=== PATIENT | female | born 1955 | race Caucasian/White ===

== ENCOUNTER 2017-05-16 14:42 | Inpatient (IN) | payer SELFPAY ==
[~2017-05-16] VITALS: Ht 167.6 cm; Wt 85.7 kg
--- NOTE | 2017-05-16 14:42 | NUR ---
Patient BIBA BLS accompanied by [place] [employer], transferred to bed 2. RN evaluating patient at bedside.
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
[2017-05-16 14:59] VITALS: BP 147/86
--- NOTE | 2017-05-16 15:00 | NUR ---
BL PEDAL/BL RADIAL PULSES +3, BL UPPER/LOWER EXTREMITY CAP REFILL <2 SECONDS, NO LOSS OF SENSATION TO BL UPPER/LOWER EXTREMITY AT THIS TIME; SKIN IS INTACT, NO ERYTHEMA NOTED TO BL UPPER/LOWER EXTREMITIES AT THIS TIME. WILL CONTINUE TO MONITOR.
[2017-05-16] MEDS ORDERED: diphenhydrAMINE 50 MG/ML VIAL IM ONE (15:15)
[2017-05-16] MEDS ORDERED: LORazepam 2 MG/ML VIAL IM ONE (15:15)
[2017-05-16] MEDS: NACL 0.9% 1,000 ML IV SCH (15:30)
--- NOTE | 2017-05-16 15:43 | NUR ---
Patient transferred to bed 1 for further care.
[2017-05-16] MEDS ORDERED: HALOPERIDOL IM 5 MG/ML VIAL IM ONE (16:05)
--- NOTE | 2017-05-16 16:05 | NUR ---
PT POSITIONED FOR COMFORT; PT CONTINUES TO SCREAM OUT LOUD; PT YELLING "THANK YOU MEERA MCCALL, GLORY TO GOD"; SITTER AT BEDSIDE; WILL CONTINUE TO MONITOR.
[2017-05-16] MEDS ORDERED: DOCUSATE SODIUM 100 MG GELCAP PO PRN (16:15)
[2017-05-16] MEDS ORDERED: HYDROcodone/APAP 7.5/325 MG 1 TAB PO PRN (16:15)
[2017-05-16] MEDS ORDERED: ACETAMINOPHEN 325 MG TAB PO PRN (16:15)
[2017-05-16] MEDS ORDERED: MORPHINE SULFATE 2 MG/ML SYR IVP PRN (16:15)
[2017-05-16] MEDS ORDERED: ONDANSETRON 4 MG/2 ML VIAL IM/IVP PRN (16:15)
--- NOTE | 2017-05-16 16:30 | NUR ---
RECEIVED PT REPORT FROM ER NURSE. PT IS DROWSY AT THIS TIME. PT IS AOX2 TO NAME AND PLACE. PT IS UNCOOPERATIVE. NOT ABLE TO PROVIDE MEDICAL HX DUE TO MENTAL STATUS. PT IS ON 5150 HOLD OF SI. NO S/S OF ACUTE DISTRESS ON ROOM AIR. VITALS TAKEN, WITHIN NORMAL LIMIT. MRSA SCREENING DONE. IV NOTED TO THE LEFT HAND 20G, IS PATENT AND INTACT. ABRASIONS NOTED TO THE KNEES. ABLE TO ASSESS SACRAL BECAUSE PT REFUSED TO TAKE OFF HER UNDERWEAR. DENIES ANY PAIN. ORIENTED PT TO HOSPITAL ENVIRONMENT AND CARE PLAN. PT IS ON 1;1 SITTER. BED IN LOW POSITION. RESTRAINTS ARE REMOVED. NO RESTRAINS AT THIS TIME. PT IS RESTING IN BED.
--- NOTE | 2017-05-16 16:30 | NUR ---
RECEIVED PT REPORT FROM ER NURSE. PT IS DROWSY AT THIS TIME. PT IS AOX2 TO NAME AND PLACE. PT IS UNCOOPERATIVE. NOT ABLE TO PROVIDE MEDICAL HX DUE TO MENTAL STATUS. PT IS ON 5150 HOLD OF [employer]. NO S/S OF ACUTE DISTRESS ON ROOM AIR. VITALS TAKEN, WITHIN NORMAL LIMIT. MRSA SCREENING DONE. IV NOTED TO THE LEFT HAND 20G. IS PATENT AND INTACT. SKIN INTACT. STATES TOLERABLE ABD PAIN OF 3/10 AND FEELING HOT, GAVE PATIENT ICE BAG FOR COMFORT. PATIENT WAS DISCUSSED POC FOR TODAY, HOSPITAL ENVIRONMENT, CALL LIGHT USE FOR ASSISTANCE. BED IN LOW POSITION WITH CALL LIGHT WITHIN REACH, PATIENT VERBALIZED UNDERSTANDING. Addendum: 05/16/17 at 1946 by Adam Roach RN PLEASE DISCARD, UNDER WRONG PT.
--- NOTE | 2017-05-16 16:38 | NUR ---
Patient will be admitted to care of DR. GIORDANO. Admited to MED-SURG. Will go to room 109B. Belongings list completed. Report to JOHN REAL AT BEDSIDE.
--- NOTE | 2017-05-16 16:45 | NUR ---
APPLIED FALL RISK BAND AND ALLERGY BAND TO LEFT WRIST. PT IS SLEEPING.
[2017-05-16] MEDS ORDERED: LORazepam 2 MG/ML VIAL IVP PRN (17:00)
--- NOTE | 2017-05-16 17:00 | NUR ---
PT REFUSED HEAD CT AND US CAROTID. Addendum: 05/16/17 at 1951 by Adam Roach RN PT WAS SHOUTING LOUDLY "NO, I DON'T WANT IT. I KNOW MY RIGHTS. "
[2017-05-16 17:26] VITALS: BP 130/72
--- NOTE | 2017-05-16 18:50 | NUR ---
PT REFUSED BLOOD DRAW.
--- NOTE | 2017-05-16 19:30 | NUR ---
ENDORSED PT TO GRAIN SAMPLER. PT IN STABLE CONDITION.
--- NOTE | 2017-05-16 19:30 | NUR ---
PT SLEEPING, NO SIGNS OF DISTRESS, IVF INFUSING WELL, SAFETY MEASURES IN PLACE, SITTER 1:1 IN THE ROOM, ALL NEEDS ANTICIPATED.
[2017-05-16] MEDS ORDERED: QUEtiapine FUMARATE 25 MG TAB PO SCH (21:00)
--- NOTE | 2017-05-16 21:15 | NUR ---
PT SLEEPING, EASILY AROUSABLE, OPENS EYES THEN WENT BACK TO SLEEP, ASK IF SHE WANT TO TAKE HER DUE PO MEDICATION, PT NOT ANSWERING AND KEEPING EYES CLOSED, OFFERED IF SHE WANTS TO USE BEDPAN OF RESTROOM, PT NOT ANSWERING, OFF RESTRAINTS AT THIS TIME, SIDE RAILS UP, SITTER IN THE ROOM, MONITORED CLOSELY.
--- NOTE | 2017-05-16 23:40 | NUR ---
PT SLEEPING, EASILY AROUSABLE, ASK PERMISSION TO TAKE VITAL SIGNS, PT SAID "PEARL", VITAL SIGNS STABLE, NO SIGNS OF PAIN, PT WENT BACK TO SLEEP, IVF INFUSING WELL, CONTINUE TO MONITOR CLOSELY.
[2017-05-17] VITALS: BP 141/86
--- NOTE | 2017-05-17 03:08 | NUR ---
PT AWAKE SUDDENLY SHOUTS "PRALOCO MCCALL", PT ASKING WHY IS SHE ON IV FLUIDS AND IF ANY PROCEDURES ARE TO BE DONE TO HER, EXPLAINED TO PT THAT SHE IS ON IVF BECAUSE SHE IS NPO EXCEPT MEDS AND THERE ARE NO PROCEDURES TO BE DONE AT THIS TIME, PT VERBALIZED UNDERSTANDING, ICE CHIPS PROVIDED, PT CALM AND COOPERATIVE AT THIS TIME, MONITORED CLOSELY.
--- NOTE | 2017-05-17 05:10 | NUR ---
PT AWAKE, AMBULATED TO BR WITH MINIMAL ASSIST BY MEHNAZ MARIO, VOIDED FREELY WITH 600ML LIGHT JASON URINE, SPECIMEN SENT TO LAB, PT WENT BACK TO BED, CALM AND COOPERATIVE AT THIS TIME, MONITORED CLOSELY.
[2017-05-17 06:17] LABS: BASOPHILS # (AUTO) 0.1 K/uL (0.00-0.22); BASOPHILS % (AUTO) 1.2 % (0.0-2.0); EOSINOPHILS # (AUTO) 0.1 K/uL (0-0.4); EOSINOPHILS % (AUTO) 2.4 % (0.0-4.0); HEMATOCRIT 36.8 % (36-48); HEMOGLOBIN 12.6 g/dL (12.0-16.0); LYMPHOCYTES # (AUTO) 0.8 K/uL (2.5-16.5); LYMPHOCYTES % (AUTO) 13.9 % (20.5-51.1); MEAN CORPUSCULAR HEMOGLOBIN 29 pg (27-31); MEAN CORPUSCULAR HGB CONC 34 g/dL (33-37); MEAN CORPUSCULAR VOLUME 86 fL (80-94); MONOCYTES # (AUTO) 0.3 K/uL (0.8-1.0); MONOCYTES % (AUTO) 5.7 % (1.7-9.3); NEUTROPHILS # (AUTO) 4.8 K/uL (1.8-7.7); NEUTROPHILS % (AUTO) 76.8 % (42.2-75.2); PLATELET COUNT (AUTO) 152 K/uL (140-450); RED BLOOD CELL COUNT(AUTO) 4.29 MIL/uL (4.20-5.40); RED CELL DISTRIBUTION WIDTH 14.2 % (11.6-13.7); WHITE BLOOD COUNT (AUTO) 6.1 K/uL (4.8-10.8)
[2017-05-17 06:41] LABS: APPEARANCE,URINE CLEAR (CLEAR); BILIRUBIN,URINE NEGATIVE (NEGATIVE); BLOOD, URINE NEGATIVE (NEGATIVE); COLOR,URINE YELLOW (YELLOW); LEUKOCYTE ESTERASE ,URINE NEGATIVE (NEGATIVE); NITRITE, URINE NEGATIVE (NEGATIVE); UGLUCOSE NEGATIVE (NEGATIVE)
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
[2017-05-17 06:51] LABS: BARBITURATE, URINE NEG. ng/ml (NEG <=200); BENZODIAZEPINE, URINE NEG. ng/mL (NEG <=200); CANNABINOID, URINE NEG. ng/mL (NEG <=50); COCAINE, URINE NEG. ng/mL (NEG <=300); OPIATE, URINE NEG. ng/mL (NEG <=2000); PHENCYCLIDINE SCREEN,URINE NEG. ng/mL (NEG <=25)
[2017-05-17 07:00] LABS: ANION GAP 11.2 (8-16); POTASSIUM 3.2 mmol/L (3.5-5.1)
[2017-05-17 07:02] LABS: MAGNESIUM 1.9 mg/dL (1.8-2.4); PHOSPHORUS 3.2 mg/dL (2.5-4.9)
--- NOTE | 2017-05-17 07:15 | NUR ---
PT STILL CHANTING, NO DISTRESS NOTED, REPORT GIVEN TO JOHN SHARMA FOR CONTINUITY OF CARE.
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
[2017-05-17 08:00] VITALS: BP 136/82
--- NOTE | 2017-05-17 08:00 | NUR ---
PER RADIOLOGY, PT REFUSED CT OF HEAD. WILL CONTINUE TO MONITOR PT.
[2017-05-17] MEDS ORDERED: POTASSIUM CHLORIDE 10 MEQ TABER PO SCH (09:00)
[2017-05-17] MEDS: QUEtiapine FUMARATE 25 MG TAB PO SCH ×2 (09:00→21:00)
[2017-05-17] MEDS: NACL 0.9% 1,000 ML IV SCH (09:00)
--- NOTE | 2017-05-17 09:01 | NUR ---
PT REFUSED LABS TO BE DRAWN THIS MORNING. REFUSED MEDS. IVF SWITCHED TO A NEW BAG. WILL CONTINUE TO MONITOR PT. Addendum: 05/17/17 at 0906 by Rimma Chance RN EXPLAINED TO PT THAT IT IS IMPORTANT TO TAKE MEDS ORDERED AND HAVE LABS DRAWN. EXPLAINED THAT SHE NEEDS TO GET BETTER SO SHE CAN LEAVE THE HOSPITAL SOONER. SHE STATED, SHE DOESN'T CARE. SHE WILL HERE.
--- NOTE | 2017-05-17 09:03 | NUR ---
PATIENT HAS BEEN SCREENED AND CATEGORIZED LOW NUTRITION RISK. PATIENT WILL BE SEEN WITHIN 7 DAYS OF ADMISSION. 05/22/[address]
[2017-05-17 09:35] LABS: CHOL/HDL RATIO 2.7 (1-4.5); FREE T4 (FREE THYROXINE) 1.11 ng/dL (0.76-1.46); THYROID STIMULATING HORMONE 1.35 uIU/mL (0.34-3.74)
--- NOTE | 2017-05-17 10:35 | NUR ---
PT SLEEPING SOUNDLY. NO SIGNS OF DISTRESS. SITTER IN ROOM. WILL CONTINUE TO MONITOR PT.
--- NOTE | 2017-05-17 12:30 | NUR ---
DC INSTRUCTIONS GIVEN TO PT. PT VERBALIZED UNDERSTANDING. REMOVED IV, CANNULA INTACT. REMOVED ID BAND AND TELE MONITOR. PT CALLED HER CAREGIVER TO COME AND PICK HER UP. WILL GET DRESSED, GATHER HER STUFF AND ONCE CAREGIVER GETS HERE, WILL LET US KNOW. WE WILL HAVE WHEELCHAIR READY. Addendum: 05/17/17 at 1303 by Rimma Chance RN WRONG PT, PLEASE DISREGARD.
--- NOTE | 2017-05-17 12:50 | NUR ---
PT WHEELED OUT IN WHEELCHAIR ACCOMPANIED BY CAREGIVER AND GAS TURBINE ASSEMBLER. PERSONAL BELONGING IN HAND. STABLE IN CONDITION. Addendum: 05/17/17 at 1300 by Rimma Chance RN WRONG PT. DISREGARD
--- NOTE | 2017-05-17 13:03 | NUR ---
PT IS SITTING UP AND EATING LUNCH. NO SIGNS OF DISTRESS. SITTER IN ROOM. WILL CONTINUE TO MONITOR PT. Addendum: 05/17/17 at 1833 by Rimma Chance RN IV ACCESS PULLED OUT WHEN PT GOT ON THE FLOOR BEFORE EATING, TRYING TO PRAY. NO BLEEDING NOTED.
--- NOTE | 2017-05-17 14:58 | NUR ---
PT IS SITTING UP AND READING A BOOK. NO SIGNS OF DISTRESS. NO MORE CHANTING. JUST READING. SITTER AT THE DOOR. WILL CONTINUE TO MONITOR PT.
--- NOTE | 2017-05-17 16:00 | NUR ---
PSYCHIATRIST HERE. PT JUST IGNORING HER. READING HER BIBLE. WON'T HAVE A CONVERSATION.
--- NOTE | 2017-05-17 16:28 | NUR ---
REFUSED V/S. SCREAMED AT ME "NO" 3X. NO V/S.
--- NOTE | 2017-05-17 18:31 | NUR ---
PT SITTING AND READING AGAIN. SCREAMING OUT TIME TO TIME, "PRAISE GOD!" PT IS STABLE.
--- NOTE | 2017-05-17 19:23 | NUR ---
ENDORSED PT TO THE SURVEILLANCE SENSOR OPERATOR NURSE AT BEDSIDE FOR CONTINUITY OF CARE. PT IS SLEEPING. NO SIGNS OF DISTRESS. IN STABLE CONDITION.
--- NOTE | 2017-05-17 19:24 | NUR ---
RECD. RESTING IN BED, SLEEPING BUT WAKES UP WHEN NAME CALLED. NO IV LINE, STILL REFUSING TO HAVE NEW IV LINE. PLAN OF CARE FOR THE SHIFT DISCUSSED. SEEMS NOT TO MIND WHAT NURSE IS SAYING. RESPIRATION EVEN AND UNLABORED. NO APPEARANCE OF PAIN NOTED . 1:1 SITTER MONITORING PATIENT.
--- NOTE | 2017-05-17 19:24 | NUR ---
Patient's Plan of Care was discussed and reviewed with BUSINESS AFFAIRS MANAGER: ZEKE DOWELL
[2017-05-17 20:00] VITALS: BP 123/73
--- NOTE | 2017-05-17 20:00 | NUR ---
ALLOWED NURSING STUDENTS TO TAKE HER VITAL SIGNS. VS STABLE.
--- NOTE | 2017-05-17 20:15 | NUR ---
A/OX2, OCCASIONALLY PREFERS NOT TO ANSWER QUESTIONS.
--- NOTE | 2017-05-17 21:00 | NUR ---
REFUSED NIGHT MEDICATION, SHOUTED "I DON'T LIKE IT."
--- NOTE | 2017-05-17 23:00 | NUR ---
SLEEPING COMFORTABLY IN BED.
[2017-05-18] MEDS: NACL 0.9% 1,000 ML IV SCH (01:34)
--- NOTE | 2017-05-18 03:26 | NUR ---
SLEEPING SOUNDLY, SNORING IN BED.
--- NOTE | 2017-05-18 05:05 | NUR ---
SHOUTED DURING SLEEP. CONTINUED SLEEPING. NO DISTRESS NOTED.
--- NOTE | 2017-05-18 06:45 | NUR ---
SHOUTS LOUDLY X4 ALREADY DURING SLEEP. NEW SITTER MONITORING PATIENT BEHAVIOR.
--- NOTE | 2017-05-18 06:55 | NUR ---
NO SUICIDAL IDEATION NOTED DURING SHIFT BUT REMAINS UNCOOPERATIVE, REFUSED BLOOD DRAW THIS AM REPORTED BY COOKER TENDER. WILL ENDORSED TO AM NURSE FOR CONTINUITY OF CARE.
--- NOTE | 2017-05-18 07:10 | NUR ---
ENDORSED TO JOHN SHARMA FOR CONTINUITY OF CARE.
--- NOTE | 2017-05-18 07:15 | NUR ---
RECEIVED REPORT FROM THE GOVERNMENT SERVICES PROFESSIONAL NURSE. PT IS AWAKE. INTERMITTENTLY SCREAMING FROM THE TOP OF HER LUNGS, "THANK YOU CAL". PER GOVERNMENT SERVICES PROFESSIONAL NURSE, PT IS STILL REFUSING MEDS AND LABS. DR BURNS MAY COME TODAY TO EVALUATE PT. PT IS NON-COMPLAINT. PT IS AMBULATORY. NO IV ACCESS. WILL CONTINUE TO MONITOR PT.
--- NOTE | 2017-05-18 07:55 | NUR ---
PT HAS HER EYES CLOSED, LYING R SIDE LINE. EXPLAINED TO PT ABOUT GETTING V/S. PT IGNORED US. WILL COME BACK LATER TO SEE IF SHE WILL COOPERATE. SITTER AT DOORWAY. WILL CONTINUE TO MONITOR PT.
[2017-05-18] MEDS ORDERED: COMMUNICATION ORDER MC ONE (08:55)
[2017-05-18] MEDS ORDERED: QUEtiapine FUMARATE 100 MG TAB PO SCH (09:00)
--- NOTE | 2017-05-18 09:00 | NUR ---
PT REFUSED V/S AND MORNING MEDS, BREAKFAST TOO. WILL CONTINUE TO MONITOR PT.
[2017-05-18] MEDS ORDERED: GEODON 20 MG IM SCH (10:00)
--- NOTE | 2017-05-18 10:00 | NUR ---
I attempted to meet with patient and gather some of her information to confirm and asses for her needed services upon discharge from [facility]. Patient was in bed with eyes close shot but aware of my presence. Patient will not cooperate during meeting with these curriculum writer. Patient will ignored any questions, and will not respond appropriately. Patient instead of responding she will shout random words or sentences. Patient would scream. " You can't help me", " Im not In pain", " I am tired ", " Come back later". During the meeting with these curriculum writer patient will not respond directly, will ignored me until she decided to respond what she wanted at the time with close eyes but not sleeping. I ended meeting with patient with no quality information about patient.
--- NOTE | 2017-05-18 10:03 | NUR ---
ADMINISTERED GEODON 20MG/1ML. ACCOMPANIED BY 3 NURSES. PT FIRST VERBALIZED REFUSAL BUT WAS NOT COMBATIVE. PT TOLERATED WELL. SITTER IN THE ROOM. WILL CONTINUE TO MONITOR PT.
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
--- NOTE | 2017-05-18 12:30 | NUR ---
JOANN PHOTOCOPYING EQUIPMENT REPAIRER BROUGHT PATIENT BACK IN HANDCUFFS, PT VERBALLY AGGRESSIVE, SCREAMING "GET ME OUT OF THE HANDCUFFS!" CHARGE NURSE, NURSING KNITTING DEMONSTRATOR, MAGAN SANTOS AND DR SOTO MADE AWARE OF PATIENT RETURN, PT BELONGINGS GIVEN TO THEM FROM SECURITY, PT TO BE TAKEN DIRECTLY TO [facility] BY JOANN GAN.
--- NOTE | 2017-05-18 12:35 | NUR ---
PT'S FOUND BY THE POLICE BROUGHT BACK . PT'S BACK IN ROOM SITTER AT DOORWAY. WILL CONTINUE TO MONITOR PATIENT. Addendum: 05/18/17 at 1301 by Rimma Chance RN PT COMBATIVE, KEEPS COMING OUT OF THE ROOM, KICKED THE SELF PROPELLED DREDGE OPERATOR. POLICE TOOK PT TO [place], IN [place].
[2017-05-19] MEDS ORDERED: QUEtiapine FUMARATE 100 MG TAB PO SCH (09:00)
== END 2017-05-18 12:35 | disposition left against medical advice (07) | DRG 71 ==
LOC: MED 14:42 → MTU 16:18
PROVIDERS: ADMIT Student in an Organized Health Care Education/Training Program; ATTEND Student in an Organized Health Care Education/Training Program
DX: G93.40 Encephalopathy, unspecified (principal); R45.851 Suicidal ideations; E87.8 Other disorders of electrolyte and fluid balance, not elsewhere classified; G90.9 Disorder of the autonomic nervous system, unspecified; Z88.1 Allergy status to other antibiotic agents; Z88.0 Allergy status to penicillin; E87.6 Hypokalemia
CPT/HCPCS: 36415; 71045; 80048; 80305; 81003; 82150; 83690; 83735; 83880; 84100; 84439; 84443; 84479; 84484; 85025; 87081; 93005; 96372; 99285; C1758; G0482; J1200; J1630; J2060; J7030; Q0092

== ENCOUNTER 2017-08-20 14:39 | Inpatient (IN) | payer MEDICAID ==
[~2017-08-20] VITALS: Ht 167.6 cm; Wt 86.2 kg
[2017-08-20 14:46] VITALS: BP 192/108
[2017-08-20 16:20] LABS: BASOPHILS # (AUTO) 0.1 K/uL (0.00-0.22); BASOPHILS % (AUTO) 0.9 % (0.0-2.0); EOSINOPHILS % (AUTO) 0.4 % (0.0-4.0); HEMATOCRIT 40.5 % (36-48); HEMOGLOBIN 13.8 g/dL (12.0-16.0); LYMPHOCYTES % (AUTO) 18.3 % (20.5-51.1); MEAN CORPUSCULAR HEMOGLOBIN 29 pg (27-31); MEAN CORPUSCULAR HGB CONC 34 g/dL (33-37); MEAN CORPUSCULAR VOLUME 84.6 fL (80-94); MONOCYTES # (AUTO) 0.4 K/uL (0.8-1.0); MONOCYTES % (AUTO) 6.6 % (1.7-9.3); NEUTROPHILS # (AUTO) 4.1 K/uL (1.8-7.7); NEUTROPHILS % (AUTO) 73.8 % (42.2-75.2); PLATELET COUNT (AUTO) 216 K/uL (140-450); RED BLOOD CELL COUNT(AUTO) 4.79 MIL/uL (4.20-5.40); RED CELL DISTRIBUTION WIDTH 15.4 % (11.6-13.7); WHITE BLOOD COUNT (AUTO) 5.5 K/uL (4.8-10.8)
[2017-08-20 16:33] LABS: APPEARANCE,URINE SL CLOUDY (CLEAR); BILIRUBIN,URINE NEGATIVE (NEGATIVE); BLOOD, URINE TRACE-I (NEGATIVE); COLOR,URINE YELLOW (YELLOW); LEUKOCYTE ESTERASE ,URINE 1+ (NEGATIVE); NITRITE, URINE NEGATIVE (NEGATIVE); UGLUCOSE NEGATIVE (NEGATIVE)
[2017-08-20 16:46] LABS: ALBUMIN 4.1 g/dL (3.4-5.0); ANION GAP 19.6 (8-16); ASPARTATE AMINOTRANSFERASE 22 U/L (15-37); CARBON DIOXIDE 18.9 mmol/L (21-32); CHLORIDE 104 mmol/L (98-107); CREATININE 1.3 mg/dL (0.6-1.3); GFR ARICAN-AMERICAN 53 mL/min (>90); GLUCOSE 112 mg/dL (74-106); POTASSIUM 3.5 mmol/L (3.5-5.1); SODIUM SERUM 139 mmol/L (136-145); TOTAL BILIRUBIN 0.7 mg/dL (0.0-1.0); UREA NITROGEN, BLOOD 26 mg/dL (7-18)
[2017-08-20 16:59] LABS: SALICYLATE < 2.8 mg/dL (2.8-20.0)
[2017-08-20 17:00] LABS: ACETAMINOPHEN < 0.5 ug/ml (10-30)
[2017-08-20 17:08] LABS: BARBITURATE, URINE NEG. ng/ml (NEG <=200); BENZODIAZEPINE, URINE POS. ng/mL (NEG <=200); CANNABINOID, URINE NEG. ng/mL (NEG <=50); COCAINE, URINE NEG. ng/mL (NEG <=300); OPIATE, URINE NEG. ng/mL (NEG <=2000); PHENCYCLIDINE SCREEN,URINE NEG. ng/mL (NEG <=25)
[2017-08-20 17:44] LABS: RBC,URINE 0-5 (RARE) /HPF (0-5)
[2017-08-20] MEDS ORDERED: CLIN300C6 GT/PO (21:05)
[2017-08-20] MEDS ORDERED: CLINDAMYCIN 150 MG CAP PO ONE (21:30)
[2017-08-20] MEDS ORDERED: LORazepam 1 MG TAB PO ONE (21:40)
[2017-08-20] MEDS ORDERED: diphenhydrAMINE 50 MG CAP PO ONE (21:45)
[2017-08-20] MEDS ORDERED: LORazepam 2 MG/ML VIAL IM ONE (22:00)
[2017-08-20] MEDS ORDERED: BENZTROPINE 2 MG/2 ML AMP IM ONE (22:00)
[2017-08-21] MEDS ORDERED: ACETAMINOPHEN 325 MG TAB PO PRN (01:45)
[2017-08-21] MEDS ORDERED: MORPHINE SULFATE 4 MG/ML SYR IVP PRN (01:45)
[2017-08-21] MEDS ORDERED: ONDANSETRON 4 MG/2 ML VIAL IM/IVP PRN (01:45)
[2017-08-21] MEDS ORDERED: DOCUSATE SODIUM 100 MG GELCAP PO PRN (01:45)
[2017-08-21] MEDS ORDERED: HYDROcodone/APAP 7.5/325 MG 1 TAB PO PRN (01:45)
[2017-08-21 02:25] LABS: PROTHROMBIN TIME 10.6 secs (10.8-13.4)
[2017-08-21] MEDS ORDERED: MECLIZINE 25 MG TAB PO PRN (02:25)
[2017-08-21 02:30] VITALS: BP 135/50
[2017-08-21 02:39] LABS: CHOL/HDL RATIO 2.8 (1-4.5); FREE T4 (FREE THYROXINE) 0.89 ng/dL (0.76-1.46); MAGNESIUM 2.1 mg/dL (1.8-2.4); PHOSPHORUS 5.5 mg/dL (2.5-4.9); THYROID STIMULATING HORMONE 3.52 uIU/mL (0.34-3.74)
[2017-08-21] MEDS ORDERED: LEVOFLOXACIN 500 MG/D5W PREMIX 100 ML IV SCH (04:00)
[2017-08-21 06:27] LABS: EOSINOPHILS # (AUTO) 0.1 K/uL (0-0.4); EOSINOPHILS % (AUTO) 2.6 % (0.0-4.0); HEMATOCRIT 38.7 % (36-48); HEMOGLOBIN 12.9 g/dL (12.0-16.0); LYMPHOCYTES # (AUTO) 1.2 K/uL (2.5-16.5); LYMPHOCYTES % (AUTO) 28.6 % (20.5-51.1); MEAN CORPUSCULAR HEMOGLOBIN 29 pg (27-31); MEAN CORPUSCULAR HGB CONC 33 g/dL (33-37); MEAN CORPUSCULAR VOLUME 85.7 fL (80-94); MONOCYTES # (AUTO) 0.5 K/uL (0.8-1.0); MONOCYTES % (AUTO) 10.8 % (1.7-9.3); NEUTROPHILS # (AUTO) 2.5 K/uL (1.8-7.7); PLATELET COUNT (AUTO) 208 K/uL (140-450); RED BLOOD CELL COUNT(AUTO) 4.52 MIL/uL (4.20-5.40); RED CELL DISTRIBUTION WIDTH 15.1 % (11.6-13.7); WHITE BLOOD COUNT (AUTO) 4.3 K/uL (4.8-10.8)
[2017-08-21 06:44] LABS: ANION GAP 13.7 (8-16); CARBON DIOXIDE 24.5 mmol/L (21-32); CREATININE 1.2 mg/dL (0.6-1.3); POTASSIUM 4.2 mmol/L (3.5-5.1)
[2017-08-21 06:49] LABS: MAGNESIUM 2.1 mg/dL (1.8-2.4); PHOSPHORUS 4.8 mg/dL (2.5-4.9)
[2017-08-21 08:00] VITALS: BP 114/72
[2017-08-21] MEDS ORDERED: CLINDAMYCIN 150 MG CAP PO SCH ×2 (09:00→13:00)
[2017-08-21] MEDS ORDERED: ASPIRIN 81 MG TAB.CHEW PO SCH (09:00)
[2017-08-21] MEDS ORDERED: SERTRALINE 50 MG TAB PO SCH (09:00)
[2017-08-21] MEDS ORDERED: ATORVASTATIN 20 MG TAB PO SCH (09:00)
[2017-08-21] MEDS ORDERED: LACTOBACILLUS RHAMNOSUS GG 1 EACH CAP PO SCH (09:00)
[2017-08-21 12:00] VITALS: BP 108/64
[2017-08-21] MEDS ORDERED: CLINDAMYCIN 600 MG in DEXTROSE 5% 50 ML IV SCH (13:00)
[2017-08-21] MEDS ORDERED: NACL 0.9% IRR 250 ML BOTTLE IR SCH (13:00)
[2017-08-21] MEDS ORDERED: DRY DRESSING TP SCH (13:00)
[2017-08-21 16:00] VITALS: BP 105/69
[2017-08-21] MEDS ORDERED: SIMETHICONE 80 MG TAB.CHEW PO PRN (17:15)
[2017-08-22] MEDS ORDERED: LEVOFLOXACIN 250 MG/D5 PREMIX 50 ML IV SCH (05:00)
[2017-08-22] MEDS ORDERED: ABDOMINAL PAD TP SCH (09:00)
[2017-08-22 12:12] LABS: T4 (THYROXINE) 6.9 ug/dL (4.5-12.0)
== END 2017-08-21 19:05 | disposition left against medical advice (07) | DRG 463 ==
LOC: MED 14:39 → MTU 08-21 01:44
PROVIDERS: ADMIT Family Medicine; ATTEND Family Medicine
DX: N39.0 Urinary tract infection, site not specified (principal); G93.41 Metabolic encephalopathy; N17.9 Acute kidney failure, unspecified; R45.851 Suicidal ideations; F33.1 Major depressive disorder, recurrent, moderate; Z91.19 Patient's noncompliance with other medical treatment and regimen; E83.39 Other disorders of phosphorus metabolism; F41.1 Generalized anxiety disorder; Z59.0 Homelessness; Z88.1 Allergy status to other antibiotic agents; Z88.0 Allergy status to penicillin; S41.101A Unspecified open wound of right upper arm, initial encounter; X58.XXXA Exposure to other specified factors, initial encounter; Y93.89 Activity, other specified; Y92.89 Other specified places as the place of occurrence of the external cause; Y99.8 Other external cause status; E78.5 Hyperlipidemia, unspecified; Z53.21 Procedure and treatment not carried out due to patient leaving prior to being seen by health care provider
CPT/HCPCS: 36415; 70450; 71045; 76700; 76881; 80048; 80053; 80305; 81001; 81025; 82150; 83036; 83690; 83735; 83880; 84100; 84436; 84439; 84443; 84479; 84484; 85025; 85610; 85730; 87070; 87081; 87086; 93005; 93880; 96372; 99285; G0480; G0482; J0515; J1956; J2060; J3490; J7030; J7060; Q0092; Q0163

== ENCOUNTER 2017-09-16 08:04 | Inpatient (IN) | payer MEDICAID ==
[~2017-09-16] VITALS: Ht 167.6 cm; Wt 81.2 kg
[~2017-09-16 08:04] MED LIST: CLIN300C6 GT/PO
--- NOTE | 2017-09-16 08:06 | NUR ---
PT BIBA BLS TO BED 8
[2017-09-16 08:10] VITALS: BP 156/96
--- NOTE | 2017-09-16 08:12 | NUR ---
PT. CAME VIA BLS DUE TO TREMORS FOR 2 DAYS. PT. STATES " I HAVE BEEN HAVING TREMORS FOR 2 DAYS BECAUSE I HAVE NOT REALLY EATEN FOR 2 DAYS I HAVE BEEN DRINKING A LITTLE BIT". PT. CONFIRMS THAT SHE IS HOMELESS. RR EVEN AND UNLABORED. PT DENIES ANY SOB, PT. DENIES N/V/D.DENIES ANY MEDICAL HX. PT. DENIES ANY PAIN AT THIS TIME. PT STATES " I AM HUNGRY". ER NOTIFIED. WILL CONTINUE TO MONITOR.
[2017-09-16] MEDS ORDERED: NACL 0.9% 1,000 ML IV ONE ×2 (08:25→10:20)
--- NOTE | 2017-09-16 08:42 | NUR ---
LAB AT BEDSIDE
--- NOTE | 2017-09-16 08:43 | NUR ---
PT. UNABLE TO PROVIDE URINE AT THIS TIME, BREAKFAST TRAY PROVIDED AND JUICE AND WATER. ER NOTIFIED. WILL CONTINUE TO MONITOR .
[2017-09-16 08:53] LABS: BASOPHILS % (AUTO) 0.1 % (0.0-2.0); HEMATOCRIT 41.3 % (36-48); HEMOGLOBIN 14.5 g/dL (12.0-16.0); LYMPHOCYTES # (AUTO) 0.7 K/uL (2.5-16.5); LYMPHOCYTES % (AUTO) 5.2 % (20.5-51.1); MEAN CORPUSCULAR HEMOGLOBIN 29 pg (27-31); MEAN CORPUSCULAR HGB CONC 35 g/dL (33-37); MEAN CORPUSCULAR VOLUME 82.5 fL (80-94); MONOCYTES # (AUTO) 0.8 K/uL (0.8-1.0); MONOCYTES % (AUTO) 6.2 % (1.7-9.3); NEUTROPHILS # (AUTO) 11.2 K/uL (1.8-7.7); NEUTROPHILS % (AUTO) 88.5 % (42.2-75.2); PLATELET COUNT (AUTO) 190 K/uL (140-450); RED BLOOD CELL COUNT(AUTO) 5.01 MIL/uL (4.20-5.40); RED CELL DISTRIBUTION WIDTH 14.6 % (11.6-13.7); WHITE BLOOD COUNT (AUTO) 12.7 K/uL (4.8-10.8)
[2017-09-16 09:25] LABS: ALBUMIN 4.9 g/dL (3.4-5.0); ASPARTATE AMINOTRANSFERASE 219 U/L (15-37); CHLORIDE 90 mmol/L (98-107); GFR ARICAN-AMERICAN 15 mL/min (>90); GLUCOSE 171 mg/dL (74-106); SODIUM SERUM 127 mmol/L (136-145); TOTAL BILIRUBIN 0.6 mg/dL (0.0-1.0); UREA NITROGEN, BLOOD 56 mg/dL (7-18)
[2017-09-16 09:31] LABS: SALICYLATE < 2.8 mg/dL (2.8-20.0)
[2017-09-16 09:33] LABS: ACETAMINOPHEN < 0.5 ug/ml (10-30)
--- NOTE | 2017-09-16 09:44 | NUR ---
PT. RESTING COMFORTABLY IN BED, RR EVEN AND UNLABORED, VSS, BED IN LOWEST POSITION. WILL CONTINUE TO MONITOR.
--- NOTE | 2017-09-16 09:48 | NUR ---
LAB CALLED SPOKE TO BRANDI WHICH SAID "CPK IS 1348, BUT IT WAS NOT RUN CORRECTLY IM GOING TO HAVE TO REPEAT IT AND DILUTE AND THAT WILL TAKE ABOUT 45 MIN". KENDY HERNANDEZ NOTIFIED.
[2017-09-16 10:08] LABS: ACETONE, SERUM NEGATIVE (NEGATIVE)
[2017-09-16 10:16] LABS: MAGNESIUM 2.2 mg/dL (1.8-2.4)
[2017-09-16 10:35] LABS: CKMB RELATIVE INDEX 0.8 (0.0-2.5); CREATINE KINASE MB 69.6 ng/mL (0-3.6)
--- NOTE | 2017-09-16 10:38 | NUR ---
SPOKE TO BRANDI FROM LAB , CRITICAL LAB OF CPK: 8919. KENDY HERNANDEZ NOTIFIED.
[2017-09-16] MEDS: NACL 0.9% 1,000 ML IV SCH ×3 (11:12→21:23)
[2017-09-16] MEDS ORDERED: DOCUSATE SODIUM 100 MG GELCAP PO PRN (11:15)
[2017-09-16] MEDS ORDERED: ACETAMINOPHEN 325 MG TAB PO PRN (11:15)
--- NOTE | 2017-09-16 11:44 | NUR ---
PT. STILL UNABLE TO RPOVIDE URINE, OFFERED MORE JUICE, ER NOTIFIED.
[2017-09-16 12:03] LABS: PROTHROMBIN TIME 10.4 secs (10.8-13.4)
[2017-09-16 12:05] VITALS: BP 123/67
--- NOTE | 2017-09-16 12:05 | NUR ---
RECEIVED PT FROM ER NURSE, TUYET, VIA WHEELCHAIR. PT IS ALERT, ORIENTEDX4 WITH AN IV SALINE LOCK AT RT AC G. 20, INTACT. ASSISTED PT TO THE BED AND MADE COMFORTABLE. SIDE RAILS ARE UP AND SAFETY PRECAUTION INITIATED. CALL LIGHT WITHIN REACH. IV FLUID HOOKED UP TO THE IV PUMP AT 100ML/HR, PATENT. NO SIGN OF DISTRESS NOTED AND WILL CONTINUE TO MONITOR.
--- NOTE | 2017-09-16 12:05 | NUR ---
Patient will be admitted to care of DR. HARLEY . Admited to MED SURG . Will go to room 124B . Belongings list completed. Report to JOHN MORALES .
--- NOTE | 2017-09-16 12:15 | NUR ---
PT IS AWAKE SEATED ON THE BED, VITAL SIGNS TAKEN AND IS STABLE. SIDE RAILS ARE UP AND CALL LIGHT WITHIN REACH. WILL CONTINUE TO MONITOR.
--- NOTE | 2017-09-16 12:25 | NUR ---
PT IS AWAKE AND MRSA SWAB DONE. NO SIGN OF DISTRESS NOTED. WILL MONITOR.
--- NOTE | 2017-09-16 13:09 | NUR ---
DR. ALEXIS MADE A VERBAL TELEPHONE ORDER TO INCREASE THE RATE OF THE PT'S IV FLUID TO 200ML/HR. ORDER ACKNOWLEDGED.
[2017-09-16 16:00] VITALS: BP 129/79
[2017-09-16] MEDS ORDERED: LEVOFLOXACIN 500 MG/D5W PREMIX 100 ML IV SCH (16:00)
--- NOTE | 2017-09-16 18:25 | NUR ---
PT WAS ABLE TO VOID AND A URINE SAMPLE WAS COLLECTED AND HANDED TO Nokori RODRI. DR. ALEXIS INFORMED.
[2017-09-16 18:32] LABS: FREE T4 (FREE THYROXINE) 1.13 ng/dL (0.76-1.46); MAGNESIUM 2.2 mg/dL (1.8-2.4); PHOSPHORUS 4.3 mg/dL (2.5-4.9); THYROID STIMULATING HORMONE 1.75 uIU/mL (0.34-3.74)
[2017-09-16 18:45] LABS: APPEARANCE,URINE SL CLOUDY (CLEAR); BILIRUBIN,URINE NEGATIVE (NEGATIVE); BLOOD, URINE 3+ (NEGATIVE); COLOR,URINE YELLOW (YELLOW); LEUKOCYTE ESTERASE ,URINE 2+ (NEGATIVE); NITRITE, URINE NEGATIVE (NEGATIVE); PH,URINE 5.5 (5.0-9.0); UGLUCOSE NEGATIVE (NEGATIVE)
[2017-09-16 18:54] LABS: ANION GAP 14.5 (8-16); CARBON DIOXIDE 24.4 mmol/L (21-32); CREATININE 2.3 mg/dL (0.6-1.3); POTASSIUM 3.9 mmol/L (3.5-5.1)
[2017-09-16 18:57] LABS: BARBITURATE, URINE NEG. ng/ml (NEG <=200); BENZODIAZEPINE, URINE NEG. ng/mL (NEG <=200); CANNABINOID, URINE NEG. ng/mL (NEG <=50); COCAINE, URINE NEG. ng/mL (NEG <=300); OPIATE, URINE NEG. ng/mL (NEG <=2000); PHENCYCLIDINE SCREEN,URINE NEG. ng/mL (NEG <=25)
--- NOTE | 2017-09-16 19:30 | NUR ---
ENDORSED PT TO MODEL HOME SALES GREETER NURSESHAYNA FOR CONTINUITY OF CARE, PT IS AWAKE LYING ON THE BED AND IS STABLE AT THIS TIME.
--- NOTE | 2017-09-16 19:30 | NUR ---
RECEIVED PATIENT LYING ON BED AOX4. BED IN LOW POSITION. CALL LIGHT WITHIN REACH. EXPLAIN TO PATIENT THE PLAN OF CARE. WILL CONTINUE TO MONITOR.
[2017-09-16 20:00] VITALS: BP 110/70
[2017-09-16 20:01] LABS: RBC,URINE 11-20 (MOD) /HPF (0-5); WBC,URINE 16-25 (MOD) /HPF (0-5)
[2017-09-16] MEDS ORDERED: ZOLPIDEM 5 MG TAB PO PRN (21:00)
--- NOTE | 2017-09-16 21:20 | NUR ---
SEEN PATIENT RESTING ON BED COMFORTABLY.BED IN LOW POSITION. CALL LIGHT WITHIN REACH. NO S/S OF DISTRESS NOTED AT THIS TIME. WILL CONTINUE TO MONITOR.
--- NOTE | 2017-09-16 23:20 | NUR ---
SEEN PATIENT ASLEEP COMFORTABLE ON BED. CALL LIGHT WITHIN REACH. BED IN LOW POSITION. WILL CONTINUE TO MONITOR.
--- NOTE | 2017-09-17 01:23 | NUR ---
CHECKED PATIENT ASLEEP ON BED WITH CALL LIGHT WITHIN REACH. BED IN LOW POSITION. NO S/S OF DISTRESS NOTED AT THIS TIME.
[2017-09-17] MEDS: NACL 0.9% 1,000 ML IV SCH ×5 (02:44→19:58)
--- NOTE | 2017-09-17 03:25 | NUR ---
SEEN PATIENT ASLEEP COMFORTABLY ON BED. NO S/S OF DISTRESS NOTED AT THIS TIME.
[2017-09-17 05:48] VITALS: BP 144/87
[2017-09-17 06:30] LABS: BASOPHILS % (AUTO) 0.5 % (0.0-2.0); EOSINOPHILS % (AUTO) 0.5 % (0.0-4.0); HEMATOCRIT 35.7 % (36-48); HEMOGLOBIN 12.3 g/dL (12.0-16.0); LYMPHOCYTES # (AUTO) 0.8 K/uL (2.5-16.5); MEAN CORPUSCULAR HEMOGLOBIN 29 pg (27-31); MEAN CORPUSCULAR HGB CONC 34 g/dL (33-37); MEAN CORPUSCULAR VOLUME 83.6 fL (80-94); MONOCYTES # (AUTO) 0.6 K/uL (0.8-1.0); MONOCYTES % (AUTO) 8.8 % (1.7-9.3); NEUTROPHILS # (AUTO) 4.8 K/uL (1.8-7.7); NEUTROPHILS % (AUTO) 77.2 % (42.2-75.2); PLATELET COUNT (AUTO) 148 K/uL (140-450); RED BLOOD CELL COUNT(AUTO) 4.27 MIL/uL (4.20-5.40); RED CELL DISTRIBUTION WIDTH 14.9 % (11.6-13.7); WHITE BLOOD COUNT (AUTO) 6.3 K/uL (4.8-10.8)
[2017-09-17 06:46] LABS: ANION GAP 15.1 (8-16); CARBON DIOXIDE 21.9 mmol/L (21-32); CREATININE 1.4 mg/dL (0.6-1.3)
[2017-09-17 06:56] LABS: CHOL/HDL RATIO 3.3 (1-4.5); MAGNESIUM 2.3 mg/dL (1.8-2.4); PHOSPHORUS 3.4 mg/dL (2.5-4.9)
--- NOTE | 2017-09-17 07:26 | NUR ---
ENDORSEMENT GIVEN TO AM SHIFT FOR CONTINUITY OF CARE. PATIENT IN STABLE CONDITION.
--- NOTE | 2017-09-17 07:35 | NUR ---
RECEIVED PT FROM PLASMA PROCESSING TECHNICIAN NURSE SHAYNA, PT IS AWAKE AND LYING ON THE BED, WITH AN IV LINE ON THE RT AC G. 20, INTACT. ASSISTED PT TO THE BATHROOM AND PT MADE A PEE AND ASSISTED BACK TO BED. AN ABRASION WAS NOTED ON THE PT'S RT PALM. CLEANED AND RADHA. VITAL SIGNS TAKEN AND IS STABLE. SAFETY PRECAUTION ENFORCED. SIDE RAILS ARE UP AND BED IN LOW POSITION, CALL LIGHT WITHIN REACH. NO SIGN OF DISTRESS NOTED ON THE PT. WILL CONTINUE TO MONITOR.
--- NOTE | 2017-09-17 08:07 | NUR ---
FAXED INITIAL REVIEW TO [facility] [phone] PHONE [phone] FAXED INITIAL REVIEW TO [facility] [phone] PHONE WILL [phone]
[2017-09-17 08:18] LABS: CKMB RELATIVE INDEX 0.6 (0.0-2.5); CREATINE KINASE MB 18.5 ng/mL (0-3.6)
[2017-09-17] MEDS ORDERED: LORazepam 1 MG TAB PO PRN (08:45)
--- NOTE | 2017-09-17 08:50 | NUR ---
PATIENT HAS BEEN SCREENED AND CATEGORIZED MODERATE NUTRITION RISK. PATIENT WILL BE SEEN WITHIN 3-5 DAYS OF ADMISSION. 09/18/17 09/20/[address]
--- NOTE | 2017-09-17 09:00 | NUR ---
DR. ALEXIS SAW AND VISITED THE PT IN HER ROOM AND SPOKE TO THE PT. NO SIGN OF DISTRESS NOTED AND PT VERBALIZED UNDERSTANDING OF WHAT THE DR. ALEXIS TOLD HER. WILL MONITOR.
[2017-09-17] MEDS: LACTOBACILLUS RHAMNOSUS GG 1 EACH CAP PO SCH (09:15)
[2017-09-17] MEDS: ESCITALOPRAM 20 MG TAB PO SCH (09:16)
--- NOTE | 2017-09-17 09:23 | NUR ---
PT IS AWAKE AND LYING ON THE BED, MEDICATIONS GIVEN, IVF STARTED A NEW BAG AT 200ML/HR, INTACT AND INFUSING WELL, AND PT TOLERATED IT. NO SIGN OF DISTRESS NOTED. CALL LIGHT WITHIN REACH AND SIDE RAILS ARE UP. WILL MONITOR
--- NOTE | 2017-09-17 13:17 | NUR ---
ACKNOWLEDGED A PT CLARIFICATION ORDER FOR THE PT.
--- NOTE | 2017-09-17 15:50 | NUR ---
PT IS AWAKE AND VITAL SIGNS TAKEN AND IS STABLE. NO SIGN OF DISTRESS NOTED. WILL MONITOR.
[2017-09-17 16:00] VITALS: BP 143/80
--- NOTE | 2017-09-17 16:44 | NUR ---
P.T. NOTES P.T. CASSANDRA COMPLETED; NURSING TO AMBU PATIENT ADLIB Addendum: 09/17/17 at 1645 by Ginger Narvaez PT Amended: Links added.
[2017-09-17] MEDS ORDERED: LEVOFLOXACIN 250 MG/D5 PREMIX 50 ML IV SCH ×2 (17:00→17:30)
[2017-09-17] MEDS ORDERED: RENAL DOSING PER PHARMACY MC PRN (17:40)
--- NOTE | 2017-09-17 19:30 | NUR ---
RECEIVED PT ON BED, AAOX4, CALM AND COOPERATIVE, DENIES ANY PAIN, IVF INFUSING WELL, TOLERATING DIET, PLAN OF CARE DISCUSS, SAFETY MEASURES IN PLACE, CALL LIGHT WITHIN REACH
--- NOTE | 2017-09-17 19:40 | NUR ---
ENDORSED PT TO DITCHER NURSEWILLIAM FOR CONTINUITY OF CARE. PT IS TABLE AT THIS TIME.
--- NOTE | 2017-09-17 21:10 | NUR ---
PT KEEP ON CALLING THAT SHE NEEDS A CAB AND THEN CALLS AGAIN AFTER 10 MINUTES AND SAID TO CANCEL THE CAB, REORIENT AND REINFORCE TO PT THAT THERE IS NO NEED FOR A CAB AT THIS TIME SINCE THERE IS NO DISCHARGE ORDER FROM THE DOCTOR, MONITORED CLOSELY.
--- NOTE | 2017-09-17 22:45 | NUR ---
PT ASSISTED TO BR BY MEHNAZ WOODARD, VOIDED FREELY, SIDE RAILS UP AND BED ALARM ON, CALL LIGHT WITHIN REACH.
[2017-09-18] VITALS: BP 140/84
--- NOTE | 2017-09-18 00:55 | NUR ---
PT KEEP ON CALLING AND CHANGING HER MIND REGARDING NEEDING A CAB AND NOT NEEDING A CAB WHEN SHE GETS DISCHARGE, EXPLAINED TO HER THAT THERE IS NO DISCHARGE ORDER FOR HER YET AND WE WILL WAIT WHEN THERE IS A DISCHARGE ORDER THEN SHE CAN DECIDE IF SHE WANTS A CAB OR NOT, OFFERED SLEEPING PILL OR ANTI-ANXIETY MEDICATION BUT PT REFUSED TO TAKE IT "I DON'T NEED IT", MONITORED CLOSELY.
[2017-09-18] MEDS: NACL 0.9% 1,000 ML IV SCH ×5 (02:02→23:39)
--- NOTE | 2017-09-18 03:35 | NUR ---
PT SEEN AMBULATING BACK TO BED FROM THE BR WITH STEADY GAIT, MONITORED CLOSELY.
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
[2017-09-18 06:47] LABS: BASOPHILS # (AUTO) 0.1 K/uL (0.00-0.22); BASOPHILS % (AUTO) 0.9 % (0.0-2.0); EOSINOPHILS # (AUTO) 0.1 K/uL (0-0.4); EOSINOPHILS % (AUTO) 0.9 % (0.0-4.0); HEMATOCRIT 32.9 % (36-48); HEMOGLOBIN 11.6 g/dL (12.0-16.0); LYMPHOCYTES # (AUTO) 2.2 K/uL (2.5-16.5); LYMPHOCYTES % (AUTO) 33.9 % (20.5-51.1); MEAN CORPUSCULAR HEMOGLOBIN 30 pg (27-31); MEAN CORPUSCULAR HGB CONC 35 g/dL (33-37); MEAN CORPUSCULAR VOLUME 85.9 fL (80-94); MONOCYTES # (AUTO) 0.5 K/uL (0.8-1.0); MONOCYTES % (AUTO) 7.7 % (1.7-9.3); NEUTROPHILS # (AUTO) 3.6 K/uL (1.8-7.7); NEUTROPHILS % (AUTO) 56.6 % (42.2-75.2); PLATELET COUNT (AUTO) 262 K/uL (140-450); RED BLOOD CELL COUNT(AUTO) 3.84 MIL/uL (4.20-5.40); RED CELL DISTRIBUTION WIDTH 13.8 % (11.6-13.7); WHITE BLOOD COUNT (AUTO) 6.4 K/uL (4.8-10.8)
--- NOTE | 2017-09-18 07:15 | NUR ---
PT SLEEPING, NO SIGNS OF DISTRESS, REPORT GIVEN TO JOHN ENG FOR CONTINUITY OF CARE.
--- NOTE | 2017-09-18 07:15 | NUR ---
RECEIVED REPORT FROM NOC SHIFT. PT RESTING IN BED COMFORTABLY. NO ACUTE DISTRESS NOTED. A/O X4. ABLE TO MAKE NEEDS KNOWN. SKIN DRY AND WARM TO TOUCH. LUNGS SOUND CLEAR ON AUSCULTATION. RIGHT AC 20 G, INTACT. NS RUNNING AT 120 ML/HR. ABDOMEN SOFT, ROUND AND NON-TENDER. ACTIVE BOWEL SOUND. INTACT SKIN. CALL LIGHT WITHIN REACH. BED IN LOW POSITION LOCKED. WILL CONTINUE TO MONITOR.
[2017-09-18 07:27] LABS: ANION GAP 12.3 (8-16); CARBON DIOXIDE 23.4 mmol/L (21-32); POTASSIUM 3.7 mmol/L (3.5-5.1)
[2017-09-18 07:29] LABS: MAGNESIUM 1.8 mg/dL (1.8-2.4)
[2017-09-18 07:42] LABS: CREATININE 0.5 mg/dL (0.6-1.3)
[2017-09-18 08:00] VITALS: BP 160/98
[2017-09-18] MEDS ORDERED: ESCITALOPRAM 20 MG TAB PO SCH (09:00)
[2017-09-18] MEDS ORDERED: LEVOFLOXACIN 500 MG/D5W PREMIX 100 ML IV SCH (09:00)
[2017-09-18] MEDS: LACTOBACILLUS RHAMNOSUS GG 1 EACH CAP PO SCH (10:02)
[2017-09-18] MEDS: clonazePAM 0.5 MG TAB PO SCH ×2 (10:03→20:20)
[2017-09-18] MEDS: ESCITALOPRAM 20 MG TAB PO SCH (10:04)
--- NOTE | 2017-09-18 10:33 | NUR ---
PT RESTING IN BED COMFORTABLY. NO CHANGE IN LOC. WILL CONTINUE TO MONITOR.
--- NOTE | 2017-09-18 11:30 | NUR ---
PT WENT OUT OF ROOM AND TO NURSING STATION SAYING "I HEARD WHAT YOU SAID" TO STAFF. DR, CHARGE NURSE, AND RNS ADDRESSED PT. PT WAS STILL TRYING TO CALLED ATTENTION TO STAFF AND KEPT SAYING "I HEARD WHAT YOU SAID." GOT DR. WOLF TO SPEAK WITH PT. ASSISTED PT BACK TO ROOM AND IN BED. RESTING COMFORTABLY NOW. WILL CONTINUE TO MONITOR.
--- NOTE | 2017-09-18 15:30 | NUR ---
PT SLEEPING WITH VISIBLE RESPIRATIONS. NO SIGNS OF DISTRESS. LUNCH TRAY WAS NOT EATEN. WILL CONTINUE TO MONITOR.
[2017-09-18 16:00] VITALS: BP 128/74
[2017-09-18] MEDS: LEVOFLOXACIN 500 MG/D5W PREMIX 100 ML IV SCH (17:31)
--- NOTE | 2017-09-18 17:34 | NUR ---
PT GOT UP TO BATHROOM. WALKING WITH STEADY GAIT. CALM AT THIS TIME. ADMINISTERED LEVAQUIN IVPB. PT TOLERATING WELL. WILL CONTINUE TO MONITOR.
--- NOTE | 2017-09-18 18:36 | NUR ---
PT EATING DINNER TRAY. PT PRESSED CALL LIGHT AND SAID SHE DOES NOT NEED TAXI VOUCHER. TOLD PT OKAY BUT SHE IS NOT LEAVING TONIGHT. NO SIGNS OF DISTRESS. WILL CONTINUE TO MONITOR.
--- NOTE | 2017-09-18 19:20 | NUR ---
ENDORSED PT TO [employer] NURSE WILLIAM AT BEDSIDE FOR CONTINUITY OF CARE. PT IN STABLE CONDITION.
--- NOTE | 2017-09-18 19:22 | NUR ---
RECEIVED PT AWAKE, AAOX4, DENIES ANY PAIN, NO SOB NOTED, IVF INFUSING WELL, TOLERATING DIET BUT WITH FAIR APPETITE, ENCOURAGE TO INCREASE PO INTAKE AND OFFER SNACKS BUT PT REFUSED AT THIS TIME, SAFETY MEASURES IN PLACE, CALL LIGHT WITHIN REACH.
--- NOTE | 2017-09-18 20:50 | NUR ---
PT WENT TO THE NURSES STATION STATING "WHY IS NOBODY ANSWERING MY CALL LIGHT" CALL LIGHT WAS NOT ON, PT ASSISTED BACK TO ROOM AND REORIENT ON HOW TO USE THE CALL LIGHT, ALL NEEDS ATTENDED
--- NOTE | 2017-09-18 21:30 | NUR ---
PT FREQUENTLY CALLS AND STATED "I NEED A CAB TOMORROW" OR "I DON'T NEED A CAB TOMORROW", REORIENT TO PT THAT THERE IS NO DISCHARGE ORDER YET AND WILL ADDRESS THE NEED FOR THE CAB TOMORROW, ENCOURAGE TO GO TO SLEEP, MONITORED CLOSELY.
[2017-09-19 00:20] VITALS: BP 128/85
--- NOTE | 2017-09-19 00:20 | NUR ---
PT SLEEPING, EASILY AROUSABLE, VITAL SIGNS STABLE, DENIES ANY PAIN, CALM AND COOPERATIVE AT THIS TIME, IVF INFUSING WELL, CONTINUE TO MONITOR CLOSELY.
--- NOTE | 2017-09-19 05:50 | NUR ---
SEEN PT AWAKE ON BED, DENIES ANY PAIN, NO DISTRESS, IVF INFUSING WELL, MONITORED CLOSELY.
--- NOTE | 2017-09-19 06:30 | NUR ---
PT CALLED AND STATED "TELL THE NURSE THAT I'M NOT YET READY TO GO", REINFORCE PT THAT THERE IS NO DISCHARGE ORDER AT THIS TIME, THEN PT STATED "DON'T TELL THE NURSE", MONITORED CLOSELY.
--- NOTE | 2017-09-19 06:52 | NUR ---
PT STANDING IN AND OUT OF THE ROOM SAYING "TELL THE NURSE" AND "DON'T TELL THE NURSE" REPEATEDLY, REORIENT PT TO TIME AND PLACE, ENCOURAGE PT TO STAY ON BED, OFFERED MEDICATION FOR ANXIETY BUT PT REFUSED, MONITORED CLOSELY.
--- NOTE | 2017-09-19 07:17 | NUR ---
PT AWAKE STANDING BY THE DOOR, NO DISTRESS NOTED, REPORT GIVEN TO RN KANE FOR CONTINUITY OF CARE.
--- NOTE | 2017-09-19 07:18 | NUR ---
RECEIVED BEDSIDE REPORT FROM [employer] NURSE. PATIENT IS AWAKE. ALERT AND ORIENTEDX4. PATIENT REPEATS "CALL MY NURSE, CALL MY NURSE". I EXPLAINED I WAS HER NURSE. SHE TELLS ME SHE DOES NOT WANT TO BE DISCHARGED AND THEN RIGHT AFTER TELLS ME SHE WANTS TO LEAVE. SHE CONTINUES TO REPEAT THAT SHE WANTS TO GO HOME, THEN TELLS ME SHE DOES NOT WANT TO BE DISCHARGED. PATIENT HAS A HX OF SCHIZO. SHE IS VERY REPETITIVE. SHE AMBULATES, GAIT IS VERY SLOW BUT STEADY. SKIN IS INTACT. IV ON R AC 20G INFUSING NS AT 80ML/HR. IV IS CLEAN, DRY AND INTACT. PATIENT BACK IN BED. BED ALARM IS ON. WILL CONTINUE TO MONITOR THE PATIENT.
[2017-09-19 08:33] LABS: BASOPHILS % (AUTO) 0.5 % (0.0-2.0); EOSINOPHILS % (AUTO) 0.6 % (0.0-4.0); HEMATOCRIT 38.1 % (36-48); HEMOGLOBIN 13.2 g/dL (12.0-16.0); LYMPHOCYTES # (AUTO) 0.8 K/uL (2.5-16.5); LYMPHOCYTES % (AUTO) 12.4 % (20.5-51.1); MEAN CORPUSCULAR HEMOGLOBIN 29 pg (27-31); MEAN CORPUSCULAR HGB CONC 35 g/dL (33-37); MEAN CORPUSCULAR VOLUME 83.6 fL (80-94); MONOCYTES # (AUTO) 0.4 K/uL (0.8-1.0); MONOCYTES % (AUTO) 5.9 % (1.7-9.3); NEUTROPHILS # (AUTO) 5.1 K/uL (1.8-7.7); NEUTROPHILS % (AUTO) 80.6 % (42.2-75.2); PLATELET COUNT (AUTO) 167 K/uL (140-450); RED BLOOD CELL COUNT(AUTO) 4.56 MIL/uL (4.20-5.40); RED CELL DISTRIBUTION WIDTH 14.7 % (11.6-13.7); WHITE BLOOD COUNT (AUTO) 6.3 K/uL (4.8-10.8)
[2017-09-19 08:54] LABS: ANION GAP 16.8 (8-16); CARBON DIOXIDE 21.6 mmol/L (21-32); CREATININE 1.1 mg/dL (0.6-1.3); POTASSIUM 3.4 mmol/L (3.5-5.1)
[2017-09-19] MEDS: clonazePAM 0.5 MG TAB PO SCH ×3 (09:00→20:04)
[2017-09-19] MEDS: LACTOBACILLUS RHAMNOSUS GG 1 EACH CAP PO SCH (09:44)
[2017-09-19] MEDS: ARIPiprazole 10 MG TAB PO SCH (09:44)
[2017-09-19] MEDS: ESCITALOPRAM 20 MG TAB PO SCH (09:45)
[2017-09-19] MEDS: CALCIUM CARB/VIT-D 500 MG/200 IU 1 TAB PO SCH ×2 (09:45→20:01)
--- NOTE | 2017-09-19 09:48 | NUR ---
ADMINISTERED MEDS. PATIENT TOLERATED WELL. DID NOT GIVE CLONAZEPAM D/T PATIENT NOT ALLOWING ME TO CHECK HER B/P. WILL CONTINUE TO MONITOR THE PATIENT. BED IN LOW POSITION. WILL CONTINUE TO MONITOR THE PATIENT.
[2017-09-19 09:57] VITALS: BP 166/99
--- NOTE | 2017-09-19 09:58 | NUR ---
PATIENT ALLOWED ME TO CHECK B/P. PATIENT IS ANXIOUS B/P IS 166/99. WILL ADMINISTER MEDS ORDERED. BED IN LOW POSITION. CALL LIGHT WITHIN REACH. BED ALARM IS ON.
--- NOTE | 2017-09-19 10:00 | NUR ---
PATIENT KEEPS ATTEMPTING TO GET OUT OF BED. SHE IS NOT STABLE. I TURN ON THE BED ALARM AND SHE KEEPS TURNING IT OFF. I CONTINUE TO CHECK ON PATIENT D/T BED ALARM GOING OFF. WILL CONTINUE TO MONITOR THE PATIENT.
--- NOTE | 2017-09-19 10:10 | NUR ---
I SAT OUTSIDE THE ROOM AND WATCHED THE PATIENT PHYSICALLY TURN OFF THE BED ALARM. SHE CONTINUES TO TURN IT OFF AND SIT ON THE FLOOR AND TRY TO LAY ON THE FLOOR. SHE WILL SAY IT IS A FALL BUT I PHYSICALLY SEE HER TO CONTINUE TO SIT ON THE FLOOR AND SAY "SHE ROLLED OUT OF BED". I CONTINUE TO TELL HER AND SO DOES THE CHARGE NURSE, NAIDA. TO STAY IN BED. NAIDA ANAYA AND I EXPLAINED THAT IF SHE DOES NOT STAY IN BED THAT WE WILL NEED TO RESTRAIN HER. PATIENT STATES SHE DOES NOT WANT THE BED ALARM OR RESTRAINTS. WILL CONTINUE TO MONITOR THE PATIENT AND TURN ON THE BED ALARM.
--- NOTE | 2017-09-19 11:00 | NUR ---
PATIENT IS SLEEPING. NO SIGNS OF DISTRESS. WILL CONTINUE TO MONITOR THE PATIENT. BED ALARM IS ON.
[2017-09-19] MEDS ORDERED: FOLIC ACID 1 MG TAB PO SCH (12:00)
[2017-09-19] MEDS ORDERED: MULTIVITAMIN 1 TAB PO SCH (12:00)
[2017-09-19] MEDS ORDERED: THIAMINE 100 MG TAB PO SCH (12:00)
[2017-09-19] MEDS ORDERED: POTASSIUM CHLORIDE 10 MEQ TABER PO SCH (12:00)
--- NOTE | 2017-09-19 12:58 | NUR ---
PATIENT PUTTING CLOTHES ON, ASKING HER WHERE SHE IS GOING AND SHE STATES THAT SHE DOES NOT KNOW. ADMINISTERED MEDS. PATIENT TOLERATED WELL. WILL CONTINUE TO MONITOR PATIENT. BED IN LOW POSITION. BED ALARM IS ON.
--- NOTE | 2017-09-19 15:00 | NUR ---
BED ALARM GOING OFF. PATIENT TRYING TO GET OUT TO CHANGE HER CLOTHES AGAIN. SHE STATES SHE DOES NOT KNOW WHERE SHE IS GOING. PATIENT KEEPS CHANGING FROM HER CLOTHES TO HER GOWN. REORIENTING PATIENT ON HOW SHE HAS TO STAY IN HER GOWN BECAUSE SHE IS AT THE HOSPITAL. PATIENT STILL WANTS TO CONTINUE TO CHANGE FROM GOWN TO CLOTHES AND VISE VERSA. BED ALARM BACK ON.
[2017-09-19 16:00] VITALS: BP 156/92
--- NOTE | 2017-09-19 16:20 | NUR ---
PATIENT TRANSFERRED TO ROOM 110A SO SITTER CAN WATCH HER. WILL CONTINUE TO MONITOR PATIENT.
[2017-09-19] MEDS: NACL 0.9% 1,000 ML IV SCH ×2 (18:05→22:05)
[2017-09-19] MEDS: LEVOFLOXACIN 500 MG/D5W PREMIX 100 ML IV SCH (18:07)
--- NOTE | 2017-09-19 18:15 | NUR ---
ADMINISTERED MEDS. IV IS CLEAN, DRY AND INTACT. BED IN LOW POSITION. CALL LIGHT WITHIN REACH. WILL CONTINUE TO MONITOR THE PATIENT.
--- NOTE | 2017-09-19 19:00 | NUR ---
GAVE BEDSIDE REPORT TO [employer] OFFICER NURSE. PATIENT IS IN STABLE CONDITION.
--- NOTE | 2017-09-19 19:05 | NUR ---
RECEIVED PT AWAKE, VERBALLY RESPONSIVE, CALM AND COOPERATIVE AT THIS TIME, IVF INFUSING WELL, DENIES PAIN, WEARING OWN CLOTHES, REFUSED TO WEAR HOSPITAL GOWN AT THIS TIME, SAFETY MEASURES IN PLACE, SIDE RAILS UP AND BED ALARM ON, CALL LIGHT WITHIN REACH.
--- NOTE | 2017-09-19 20:10 | NUR ---
DUE PO MEDICATIONS TAKEN, PT CHANGED CLOTHES TO HOSPITAL GOWN BUT WANTS HER STREET CLOTHES BY THE TABLE SO SHE CAN CHANGED ANYTIME, ALL NEEDS ATTENDED.
--- NOTE | 2017-09-19 21:00 | NUR ---
NOTICED PT HAD ABRASION WITH DRY SCAB TO BOTH OF HER PALMS, SAID SHE GOT IT FROM FALLING DOWN SEVERAL WEEKS AGO, DRY WOUND BED, NO BLEEDING OR DRAINAGE NOTED, REFUSED DRESSING TO BE APPLIED.
--- NOTE | 2017-09-19 22:05 | NUR ---
AMBULATED TO BR WITH STEADY GAIT, VOIDED FREELY, MONITORED CLOSELY.
[2017-09-20] VITALS: BP 123/83
--- NOTE | 2017-09-20 | NUR ---
PT SLEEPING, EASILY AROUSABLE, VITAL SIGNS STABLE, DENIES ANY PAIN, IVF INFUSING WELL, CONTINUE TO MONITOR CLOSELY.
--- NOTE | 2017-09-20 03:30 | NUR ---
AMBULATED WITH STANDBY ASSIST TO THE BR AND VOIDED FREELY, MONITORED CLOSELY.
[2017-09-20] MEDS: NACL 0.9% 1,000 ML IV SCH ×2 (04:33→08:05)
--- NOTE | 2017-09-20 06:41 | NUR ---
PT AWAKE, INSISTING ON CHANGING TO HER OWN CLOTHES, TOLD PT THAT THERE IS NO DISCHARGE ORDER AT THIS TIME BUT STILL INSISTING, MONITORED CLOSELY.
[2017-09-20 07:03] LABS: BASOPHILS % (AUTO) 0.5 % (0.0-2.0); EOSINOPHILS # (AUTO) 0.1 K/uL (0-0.4); EOSINOPHILS % (AUTO) 1.2 % (0.0-4.0); HEMOGLOBIN 12.1 g/dL (12.0-16.0); LYMPHOCYTES # (AUTO) 1.1 K/uL (2.5-16.5); LYMPHOCYTES % (AUTO) 14.8 % (20.5-51.1); MEAN CORPUSCULAR HEMOGLOBIN 29 pg (27-31); MEAN CORPUSCULAR HGB CONC 35 g/dL (33-37); MEAN CORPUSCULAR VOLUME 83.8 fL (80-94); MONOCYTES # (AUTO) 0.5 K/uL (0.8-1.0); NEUTROPHILS # (AUTO) 5.8 K/uL (1.8-7.7); NEUTROPHILS % (AUTO) 76.5 % (42.2-75.2); PLATELET COUNT (AUTO) 159 K/uL (140-450); RED BLOOD CELL COUNT(AUTO) 4.17 MIL/uL (4.20-5.40); RED CELL DISTRIBUTION WIDTH 14.6 % (11.6-13.7); WHITE BLOOD COUNT (AUTO) 7.5 K/uL (4.8-10.8)
--- NOTE | 2017-09-20 07:05 | NUR ---
RECEIVED PATIENT REPORT AT BEDSIDE. PATIENT AWAKE AND ALERT. NO S/S OF DISTRESS. PATIENT STANDING IN THE BATHROOM, CHANGING TO HER OWN CLOTHES. WILL CONTINUE TO MONITOR
--- NOTE | 2017-09-20 07:14 | NUR ---
PT AWAKE, NO SIGNS OF DISTRESS, REPORT GIVEN TO JOHN GRADY FOR CONTINUITY OF CARE.
[2017-09-20 07:28] LABS: ANION GAP 15.6 (8-16); POTASSIUM 3.6 mmol/L (3.5-5.1)
[2017-09-20 07:29] LABS: MAGNESIUM 1.5 mg/dL (1.8-2.4); PHOSPHORUS 3.6 mg/dL (2.5-4.9)
[2017-09-20 08:00] VITALS: BP 148/98
[2017-09-20] MEDS: LACTOBACILLUS RHAMNOSUS GG 1 EACH CAP PO SCH (08:16)
[2017-09-20] MEDS: CALCIUM CARB/VIT-D 500 MG/200 IU 1 TAB PO SCH (08:17)
[2017-09-20] MEDS: ESCITALOPRAM 20 MG TAB PO SCH (08:18)
[2017-09-20] MEDS: ARIPiprazole 10 MG TAB PO SCH (08:47)
[2017-09-20] MEDS: clonazePAM 0.5 MG TAB PO SCH (08:47)
[2017-09-20] MEDS ORDERED: THIAMINE 100 MG TAB PO SCH (09:00)
[2017-09-20] MEDS ORDERED: MULTIVITAMIN 1 TAB PO SCH (09:00)
[2017-09-20] MEDS ORDERED: FOLIC ACID 1 MG TAB PO SCH (09:00)
[2017-09-20] MEDS ORDERED: MAGNESIUM OXIDE 400 MG TAB PO SCH ×2 (09:30→11:49)
[2017-09-20] MEDS ORDERED: ABI10 PO (11:47)
[2017-09-20] MEDS ORDERED: FOLI1TAB90 PO (11:47)
[2017-09-20] MEDS ORDERED: THIA100T31 PO (11:47)
[2017-09-20] MEDS ORDERED: MULT-405 PO (11:47)
[2017-09-20] MEDS ORDERED: ESCI20TA47 PO (11:47)
[2017-09-20] MEDS ORDERED: RISP0.251 PO (12:21)
--- NOTE | 2017-09-20 12:55 | NUR ---
PATIENT DISCHARGED. DISCHARGE INSTRUCTIONS AND DISCHARGE PRESCRIPTIONS GIVEN. PATIENT VERBALIZED UNDERSTANDING. PATIENT GIVEN HOMELESS RESOURCE PACKET AND BUS PASS. IV LINE DISCONTINUED. PATIENT LEFT WITH ALL HER DISCHARGE PAPERS AND BELONGINGS. PATIENT LEFT IN STABLE CONDITION
== END 2017-09-20 12:55 | disposition home or self-care (01) | DRG 720 ==
LOC: MED 08:04 → MTU 11:21 → MMU 09-18 02:23 → MTU 09-19 16:47
PROVIDERS: ADMIT General Practice; ATTEND General Practice
DX: A41.9 Sepsis, unspecified organism (principal); N17.0 Acute kidney failure with tubular necrosis; M62.82 Rhabdomyolysis; E87.8 Other disorders of electrolyte and fluid balance, not elsewhere classified; E87.1 Hypo-osmolality and hyponatremia; E66.3 Overweight; E86.0 Dehydration; F20.9 Schizophrenia, unspecified; F41.1 Generalized anxiety disorder; I51.7 Cardiomegaly; D72.828 Other elevated white blood cell count; N39.0 Urinary tract infection, site not specified; R73.03 Prediabetes; E78.5 Hyperlipidemia, unspecified; R07.9 Chest pain, unspecified; F33.1 Major depressive disorder, recurrent, moderate; Z68.29 Body mass index [BMI] 29.0-29.9, adult; Z88.0 Allergy status to penicillin; Z88.1 Allergy status to other antibiotic agents; Z59.0 Homelessness
CPT/HCPCS: 36415; 71045; 76700; 76770; 80048; 80053; 80305; 81001; 82009; 82140; 82150; 82550; 82553; 83690; 83735; 83880; 84100; 84439; 84443; 84484; 85025; 85610; 85730; 87081; 87086; 93005; 96360; 97140; 99285; G0480; G0482; J1956; J7030; Q0092